=== PATIENT | female | born 1985 | race Caucasian/White ===

== ENCOUNTER 2017-02-14 10:42 | Emergency (ER) | payer OTHER ==
[~2017-02-14] VITALS: Ht 172.7 cm; Wt 59.0 kg
[2017-02-14 10:47] VITALS: TEMP 36.7; Ht 172.7 cm; Wt 59.0 kg
[2017-02-14] MEDS ORDERED: XYLOCAINE 1%/SOD BICARB 20 ML VIAL INFIL ONE (11:00)
--- NOTE | 2017-02-14 11:33 | DIAGNOSTIC IMAGING REPORT ---
RIGHT TIBIA AND FIBULA 2 VIEWS CLINICAL HISTORY: Foreign body. FINDINGS: AP and lateral views of the right tibia and fibula are obtained. No prior studies are available for comparison at the time of dictation. The skeletal structures are well mineralized. No tibial or fibular fracture is seen. The knee and ankle joints are maintained. A nail is present within the anterior soft tissues at the level of the proximal to mid tibial shaft. There is no bony involvement. No subcutaneous gas is identified. IMPRESSION: 1. No acute bony abnormality is seen in the right tibia or fibula. 2. A nail is present within the anterior soft tissues of the real at the level of the proximal to mid tibial shaft. No bony involvement is seen. Electronically signed by: Navdeep Cade M.D. 02/14/2017 11:32 AM Dictated Date/Time: 02/14/2017 11:30 AM
[2017-02-14] MEDS ORDERED: IBUP-1050 PO (12:04)
[2017-02-14] MEDS ORDERED: DIPHTHERIA/TETANUS/PERTUSSIS 0.5 ML SYR/VIAL IM. ONE (12:30)
[2017-02-14 12:48] VITALS: BP 119/76; PULSE 80; O2SAT 100
--- NOTE | 2017-02-14 19:44 | EMERGENCY ROOM VISIT NOTE ---
History Report prepared by Madi: Martín Apodaca Under the Supervision of: Dr. Evens Arellano M.D. First contact with patient: 10:52 Chief Complaint: FOREIGNBODY ANY BODY PART Stated Complaint: NAIL IN LEG History of Present Illness The patient is a 31 year old female who presents to the Emergency Room for evaluation of a constant foreign body of the right real beginning 40 minutes ago. She states that she was using a nail gun, when the nail ricocheted and pierced her right real. She denies any other injury. The patient has a history of Guillain [place] and was not that she should not have routine tetanus shots. Her tetanus shot is not up to date and her most recent shot was 22 years ago. She denies any numbness or tingling. Source of History: patient Onset: 40 minutes ago Position: leg (right real) Quality: other (foriegn body) Timing: constant Associated Symptoms: No numbness Review of Systems See HPI for pertinent positives and negatives. A total of six systems were reviewed and were otherwise negative. Past Medical & Surgical Medical Problems: (1) No Known Active Medical Problems Family History No pertinent family history stated. Social History Occupation Status: employed Current/Historical Medications Scheduled PRN Ibuprofen (Advil), 200-800 MG PO UD PRN for Pain Allergies Coded Allergies: Morphine (Unverified Adverse Reaction, Unknown, HIVES, 02/14/17) Physical Exam Vital Signs Date Time Temp Pulse Resp B/P (MAP) Pulse Ox O2 Delivery O2 Flow Rate FiO2 02/14/17 12:48 80 16 119/76 100 02/14/17 10:47 36.7 97 16 120/80 100 Physical Exam GENERAL: Awake, alert, mildly uncomfortable-appearing, in no distress HENT: Normocephalic, atraumatic. Oropharynx unremarkable. EYES: Normal conjunctiva. Sclera non-icteric. NECK: Supple. No nuchal rigidity. FROM. No JVD. RESPIRATORY: Clear to auscultation. CARDIAC: Regular rate, normal rhythm. Extremities warm and well perfused. Pulses equal. ABDOMEN: Soft, non-distended. No tenderness to palpation. No rebound or guarding. No masses. MUSCULOSKELETAL: Chest examination reveals no tenderness. The back is symmetrical on inspection without obvious abnormality. No joint edema. EXTREMITIES: Upper extremities are atraumatic. Left lower extremity is atraumatic. Nail protruding from the right anterior lateral real. NEURO: Normal sensorium. No sensory or motor deficits noted. SKIN: No rash or jaundice noted. Medical Decision & Procedures ER Provider Diagnostic Interpretation: X-ray: Per my interpretation, radiologist review. RIGHT TIBIA AND FIBULA 2 VIEWS FINDINGS: AP and lateral views of the right tibia and fibula are obtained. No prior studies are available for comparison at the time of dictation. The skeletal structures are well mineralized. No tibial or fibular fracture is seen. The knee and ankle joints are maintained. A nail is present within the anterior soft tissues at the level of the proximal to mid tibial shaft. There is no bony involvement. No subcutaneous gas is identified. IMPRESSION: 1. No acute bony abnormality is seen in the right tibia or fibula. 2. A nail is present within the anterior soft tissues of the real at the level of the proximal to mid tibial shaft. No bony involvement is seen. Electronically signed by: Navdeep Cade M.D. Medications Administered Medications (Trade) Dose Ordered Sig/Barry Route Start Time Stop Time Status Last Admin Dose Admin Lidocaine HCl (Buffered Lidocaine 1% Inj) 20 ml ONE ONCE INFIL 02/14/17 11:00 02/14/17 11:02 DC 02/14/17 11:11 20 ML Diphtheria/ Pertussis/Tetanus Vacc (Adacel Inj) 0.5 ml ONCE ONCE IM. 02/14/17 12:30 02/14/17 12:31 DC 02/14/17 12:36 0.5 ML Procedure Removal of Foreign Body Indication: Foreign body. Location: right anterior lateral real. Verbal consent was obtained after the risks and benefits were explained, including but not limited to bleeding, scarring, infection, pain, and bone/joint /nerve damage. At this time, the risks of the procedure are less than the risks of NOT performing the procedure. A time out was taken and the correct patient and site identified. The skin was prepped with betadine and a sterile field set. The wound was anesthetized with 4 ml of 1% lidocaine without epinephrine. The nail was removed easily. Copious irrigation was performed using normal saline using an 18-gauge Angiocath. The wound was explored for foreign bodies and no other ones are found. The foreign body was removed without complication. Bacitracin and bandage applied. Detailed wound care instructions and signs and symptoms of worsening infection reviewed with the patient. No complications and the patient tolerated the procedure well. ED Course 1053: The patient was evaluated in room D4B. A complete history and physical exam was performed. 1100: Ordered Buffered Lidocaine 1% Inj 20 mL INFIL. 1140: I reviewed the x-rays at bedside. There does not appear to be any bony involvement, so the nail will be removed. 1205: I removed the foreign body. See the procedure note for details. 1230: Ordered Adacel Inj 0.5 mL IM. 1220: I reevaluated the patient. Discussed results and discharge instructions: she verbalized understanding and agreement. The patient is ready for discharge. Medical Decision The patient presented to the emergency department with a nail in her leg from a nail gun. An x-ray was performed. There is no evidence of bony injury. This appeared to be in the soft tissue of her leg. The patient rates some concern about a tetanus immunization as she was told to not have this in the past. She had G [place] when she was 19 years old. This was after viral infections by her history. The patient stated she did not have any vaccines around that time. Given the current recommendations and after discussion with neurology it was felt that it would be reasonable to treat the patient with a tetanus booster. I did discuss this with the patient. This was done. Foreign body was removed as above. No other injuries were sustained. The patient was neurologically intact.I gave my usual and customary discussion regarding this issue. Return instructions were outlined and the patient was discharged in stable condition. Medication Reconcilliation Current Medication List: was personally reviewed by me Blood Pressure Screening Patient's blood pressure: Normal blood pressure Blood pressure disposition: Did not require urgent referral Consults Time Called: 1155 Consulting Physician: Dr. Nair -Neurology Returned Call: 1202 Discussed the patient's case. Dr. Nair feels that the patient would be safe to receive a tetanus booster. He is not aware of any association between vaccines and recurrent [place]illain[place]. Impression Primary Impression: Foreign body of right lower leg Additional Impression: Injury by nail gun Scribe Attestation The scribe's documentation has been prepared under my direction and personally reviewed by me in its entirety. I confirm that the note above accurately reflects all work, treatment, procedures, and medical decision making performed by me. Departure Information Dispostion Home / Self-Care Referrals No Doctor, Assigned (PCP) Forms HOME CARE DOCUMENTATION FORM, IMPORTANT VISIT INFORMATION, WORK / SCHOOL INSTRUCTIONS Patient Instructions [facility] [place] [employer] Additional Instructions Bacitracin and Band-Aid to the area once daily until healed. Ibuprofen(Motrin, Advil) may be used for fever or pain. Use 600mg every six hours as needed. Take with food. Avoid using more than 2400mg in a 24 hour period. Do not use 2400mg per day for more than three consecutive days without physician direction. Prolonged inappropriate use can lead to stomach upset or ulcers. (AND/OR) Acetaminophen(Tylenol) may be used for fever or pain. Use 1000mg every six hours as needed. Avoid using more than 4000mg in a 24 hour period. Ice compresses for 20 minutes at a time four times daily for 2-3 days as needed for swelling. Rest and elevate your injury. Return to the ER immediately for spreading redness, fevers, pus-like drainage, severe pain, or as needed. Follow-up with your primary care physician in 2 to 3 days for a recheck of your current condition. Problem Qualifiers
== END 2017-02-14 12:49 | disposition home or self-care (01) ==
LOC: C.EDB 10:44 → EDBD 10:44 → C.EDD 12:49
DX: S80.851A Superficial foreign body, right lower leg, initial encounter (principal); Z23 Encounter for immunization; W29.4XXA Contact with nail gun, initial encounter; Z87.898 Personal history of other specified conditions

== ENCOUNTER 2018-02-22 16:33 | Emergency (ER) | payer OTHER ==
[~2018-02-22] VITALS: Ht 172.7 cm; Wt 55.7 kg
[~2018-02-22 16:33] MED LIST: IBUP-1050 PO
[2018-02-22 16:36] VITALS: TEMP 36.8; Ht 172.7 cm; Wt 55.7 kg
[2018-02-22 17:07] LABS: BASO % 0.4 %; BASO ABS # 0.04 K/uL (0-0.2); EOS % 0.7 %; EOS ABS # 0.07 K/uL (0-0.5); HEMATOCRIT 40.1 % (37-47); HEMOGLOBIN 13.6 g/dL (12.0-16.0); IG# 0.04 K/uL (0.00-0.02); LYMPH % 26.8 %; LYMPH ABS # 2.64 K/uL (1.2-3.4); MEAN CELL VOLUME 89.7 fL (80-100); MEAN CORPUSCULAR HEMOGLOBIN 30.4 pg (25-34); MEAN CORPUSCULAR HGB CONC 33.9 g/dl (32-36); MONO % 6.2 %; MONO ABS # 0.61 K/uL (0.11-0.59); NEUT % 65.5 %; NEUT ABS # 6.46 K/uL (1.4-6.5); PLATELET COUNT 310 K/uL (130-400); RED CELL DISTRIBUTION WIDTH CV 13.1 % (11.5-14.5); RED CELL DISTRIBUTION WIDTH SD 43.2 fL (36.4-46.3); WHITE BLOOD COUNT 9.86 K/uL (4.8-10.8)
[2018-02-22] MEDS ORDERED: BUPRTAB51 PO (17:15)
[2018-02-22] MEDS ORDERED: OPTIRAY 320 IV PRN (17:15)
--- NOTE | 2018-02-22 17:30 | DIAGNOSTIC IMAGING REPORT ---
CHEST ONE VIEW PORTABLE CLINICAL HISTORY: Chest pain. COMPARISON STUDY: No previous studies for comparison. FINDINGS: No pneumothorax or pleural effusion is noted. Lungs are clear. Cardiac size is normal. Mediastinal contours are normal. There is no pneumothorax or pleural effusion. There is no evidence for pulmonary edema. IMPRESSION: No acute cardiopulmonary findings. Electronically signed by: Gonsalo Huddleston M.D. 02/22/2018 5:29 PM Dictated Date/Time: 02/22/2018 5:28 PM
[2018-02-22 17:31] LABS: ALBUMIN 4.5 gm/dl (3.4-5.0); ALKALINE PHOSPHATASE 52 U/L (45-117); ALT/SGPT 15 U/L (12-78); AST/SGOT 11 U/L (15-37); BLOOD UREA NITROGEN 15 mg/dl (7-18); CALCIUM 9.2 mg/dl (8.5-10.1); CARBON DIOXIDE 23 mmol/L (21-32); CREATININE 0.81 mg/dl (0.60-1.20); GLUCOSE 77 mg/dl (70-99); LIPASE 74 U/L (73-393); POTASSIUM 3.7 mmol/L (3.5-5.1); SODIUM 140 mmol/L (136-145); TOTAL PROTEIN 8.1 gm/dl (6.4-8.2)
[2018-02-22] MEDS ORDERED: ONDANSETRON INJ 2 MG/ML 2 ML VIAL ONE (18:18)
--- NOTE | 2018-02-22 18:21 | DIAGNOSTIC IMAGING REPORT ---
CT ABD/PELVIS IV CONTRAST ONLY CLINICAL HISTORY: diffuse abd pain COMPARISON STUDY: None. TECHNIQUE: Following the IV administration of 119 mL of Optiray-320, CT scan of the abdomen and pelvis was performed from the lung bases to the proximal femurs. Images are reviewed in the axial, sagittal, and coronal planes. IV contrast was administered without complication. A dose lowering technique was utilized adhering to the principles of ALARA. CT DOSE: 255.20 mGy.cm FINDINGS: Lower chest: There are minor dependent atelectatic changes present. Liver: There is a to small to characterize 4 mm hypodensity within the right lobe of the liver anteriorly. Gallbladder: Unremarkable. Spleen: Normal in size and attenuation. Pancreas: Unremarkable. Adrenal glands: Unremarkable. Kidneys: There is symmetric renal cortical enhancement. The kidneys are normal in size without hydronephrosis. Bowel: There are no transition zones to indicate bowel obstruction. There is mild fecal retention. There is no acute diverticulitis. The appendix is difficult to visualize. There are no pericecal inflammatory changes. Peritoneum: There is trace free pelvic fluid. No free intraperitoneal air is visualized. Vasculature: The abdominal aorta is normal in course and caliber. Adenopathy: None. Pelvic viscera: There are bilateral ovarian follicles. There is an indwelling IUD. Skeletal structures: No destructive osseous lesions are seen. IMPRESSION: 1. No evidence of bowel obstruction. No evidence of free air 2. The appendix is difficult to visualize on this study performed without oral contrast. There are no pericecal inflammatory changes. 3. Mild fecal retention 4. IUD within the uterus 5. Bilateral ovarian follicles and minimal free pelvic fluid. Electronically signed by: Rodney Browning M.D. 02/22/2018 6:19 PM Dictated Date/Time: 02/22/2018 6:12 PM
[2018-02-22] MEDS ORDERED: ONDA4TAB65 PO (18:53)
[2018-02-22 19:00] VITALS: BP 112/72; PULSE 71; O2SAT 99
--- NOTE | 2018-02-22 22:19 | EMERGENCY ROOM VISIT NOTE ---
History Report prepared by Madi: Luly Slater Under the Supervision of: Dr. Anjum Zepeda D.O. First contact with patient: 16:38 Chief Complaint: ABDOMINAL PAIN Stated Complaint: ABD PAIN History of Present Illness The patient is a 32 year old female who presents to the Emergency Room with complaints of worsening left sided abdominal pain beginning 1 week officer captain. She states when her pain began, it was tolerable and only on her left side however over the past 2 days, it has worsened. She describes her pain as cramping and sharp. She reports she vomited once today and decided to come to the ED. Pt also states she has been getting sharp episodes chest pains but nothing makes her pain better or worse. Chest pain has been there since this morning. No other exacerbating or remitting factors. He took 1 oxycodone which slightly alleviated her pain. She reports she is having difficulty urinating and has some nausea but denies headache, change in vision, fevers, shortness of breath, diarrhea, and melena. She has not had a BM for the past 3 days but this is not abnormal for her. Her LNMP 3 weeks officer captain and she has Mirena. Source of History: patient Onset: 1 week officer captain Position: abdomen (left sided) Quality: sharp, cramping Modifying Factors (Relieving): other (1 oxycodone) Associated Symptoms: + chest pain (sharp episodes), + nausea, + vomiting ( once), + urinary symptoms (pain with urination), No fevers, No headache, No SOB , No melena, No diarrhea Review of Systems See HPI for pertinent positives & negatives. A total of 10 systems reviewed and were otherwise negative. Past Medical & Surgical Medical Problems: (1) No Known Active Medical Problems Family History No pertinent family history Social History Smoking Status: Current Every Day Smoker Marital Status: in relationship Occupation Status: employed Current/Historical Medications Scheduled Bupropion (Wellbutrin-Xl), 300 MG PO DAILY Ondansetron Hcl (Zofran), 4 MG PO TID Allergies Coded Allergies: Morphine (Unverified Adverse Reaction, Unknown, HIVES, 02/22/18) Physical Exam Vital Signs Date Time Temp Pulse Resp B/P (MAP) Pulse Ox O2 Delivery O2 Flow Rate FiO2 02/22/18 19:00 71 20 112/72 99 02/22/18 18:23 68 16 114/74 98 Room Air 02/22/18 16:36 36.8 97 17 129/90 98 Room Air Physical Exam GENERAL: Sitting up in bed, alert, well appearing, well nourished, no distress, non-toxic EYE EXAM: normal conjunctiva. OROPHARYNX: no exudate, no erythema, lips, buccal mucosa, and tongue normal and mucous membranes are moist NECK: supple, no nuchal rigidity, no adenopathy, non-tender LUNGS: Clear to auscultation. Normal chest wall mechanics HEART: no murmurs, S1 normal and S2 normal ABDOMEN: abdomen soft, mild diffuse tenderness , normo-active bowel sounds, no masses, no rebound or guarding. BACK: Back is symmetrical on inspection and there is no deformity, no midline tenderness, no CVA tenderness. SKIN: no rashes and no bruising UPPER EXTREMITIES: upper extremities are grossly normal. LOWER EXTREMITIES: No pitting edema. Calves equal bilaterally NEURO EXAM: Normal sensorium, cranial nerves II-XII grossly intact, normal speech, no gross weakness of arms, no gross weakness of legs. Medical Decision & Procedures ER Provider Diagnostic Interpretation: Radiology results as stated below per my review and the radiologist's interpretation: CHEST ONE VIEW PORTABLE CLINICAL HISTORY: Chest pain. COMPARISON STUDY: No previous studies for comparison. FINDINGS: No pneumothorax or pleural effusion is noted. Lungs are clear. Cardiac size is normal. Mediastinal contours are normal. There is no pneumothorax or pleural effusion. There is no evidence for pulmonary edema. IMPRESSION: No acute cardiopulmonary findings. Electronically signed by: Gonsalo Huddleston M.D. 02/22/2018 5:[address] ABD/PELVIS IV CONTRAST ONLY CLINICAL HISTORY: diffuse abd pain COMPARISON STUDY: None. TECHNIQUE: Following the IV administration of 119 mL of Optiray-320, CT scan of the abdomen and pelvis was performed from the lung bases to the proximal femurs. Images are reviewed in the axial, sagittal, and coronal planes. IV contrast was administered without complication. A dose lowering technique was utilized adhering to the principles of ALARA. CT DOSE: 255.20 mGy.cm FINDINGS: Lower chest: There are minor dependent atelectatic changes present. Liver: There is a to small to characterize 4 mm hypodensity within the right lobe of the liver anteriorly. Gallbladder: Unremarkable. Spleen: Normal in size and attenuation. Pancreas: Unremarkable. Adrenal glands: Unremarkable. Kidneys: There is symmetric renal cortical enhancement. The kidneys are normal in size without hydronephrosis. Bowel: There are no transition zones to indicate bowel obstruction. There is mild fecal retention. There is no acute diverticulitis. The appendix is difficult to visualize. There are no pericecal inflammatory changes. Peritoneum: There is trace free pelvic fluid. No free intraperitoneal air is visualized. Vasculature: The abdominal aorta is normal in course and caliber. Adenopathy: None. Pelvic viscera: There are bilateral ovarian follicles. There is an indwelling IUD. Skeletal structures: No destructive osseous lesions are seen. IMPRESSION: 1. No evidence of bowel obstruction. No evidence of free air 2. The appendix is difficult to visualize on this study performed without oral contrast. There are no pericecal inflammatory changes. 3. Mild fecal retention 4. IUD within the uterus 5. Bilateral ovarian follicles and minimal free pelvic fluid. Electronically signed by: Rodney Browning M.D. 02/22/2018 6:19 PM Laboratory Results 02/22/18 16:55 Red Blood Count 4.47, Mean Corpuscular Volume 89.7, Mean Corpuscular Hemoglobin 30.4, Mean Corpuscular Hemoglobin Concent 33.9, Mean Platelet Volume 11.0, Neutrophils (%) (Auto) 65.5, Lymphocytes (%) (Auto) 26.8, Monocytes (%) (Auto) 6.2, Eosinophils (%) (Auto) 0.7, Basophils (%) (Auto) 0.4, Neutrophils # (Auto) 6.46, Lymphocytes # (Auto) 2.64, Monocytes # (Auto) 0.61, Eosinophils # (Auto) 0.07, Basophils # (Auto) 0.04 02/22/18 16:55 Test 02/22/18 16:55 02/22/18 16:57 White Blood Count 9.86 K/uL (4.8-10.8) Red Blood Count 4.47 M/uL (4.2-5.4) Hemoglobin 13.6 g/dL (12.0-16.0) Hematocrit 40.1 % (37-47) Mean Corpuscular Volume 89.7 fL (80-100) Mean Corpuscular Hemoglobin 30.4 pg (25-34) Mean Corpuscular Hemoglobin Concent 33.9 g/dl (32-36) Platelet Count 310 K/uL (130-400) Mean Platelet Volume 11.0 fL (7.4-10.4) Neutrophils (%) (Auto) 65.5 % Lymphocytes (%) (Auto) 26.8 % Monocytes (%) (Auto) 6.2 % Eosinophils (%) (Auto) 0.7 % Basophils (%) (Auto) 0.4 % Neutrophils # (Auto) 6.46 K/uL (1.4-6.5) Lymphocytes # (Auto) 2.64 K/uL (1.2-3.4) Monocytes # (Auto) 0.61 K/uL (0.11-0.59) Eosinophils # (Auto) 0.07 K/uL (0-0.5) Basophils # (Auto) 0.04 K/uL (0-0.2) RDW Standard Deviation 43.2 fL (36.4-46.3) RDW Coefficient of Variation 13.1 % (11.5-14.5) Immature Granulocyte % (Auto) 0.4 % Immature Granulocyte # (Auto) 0.04 K/uL (0.00-0.02) D-Dimer 190 ug/L FEU (0-500) Anion Gap 9.0 mmol/L (3-11) Est Creatinine Clear Calc Drug Dose 89.3 ml/min Estimated GFR () 113.0 Estimated GFR (Non- 97.5 BUN/Creatinine Ratio 18.2 (10-20) Calcium Level 9.2 mg/dl (8.5-10.1) Total Bilirubin 0.4 mg/dl (0.2-1) Direct Bilirubin 0.2 mg/dl (0-0.2) Aspartate Amino Transf (AST/SGOT) 11 U/L (15-37) Alanine Aminotransferase (ALT/SGPT) 15 U/L (12-78) Alkaline Phosphatase 52 U/L (45-117) Troponin I < 0.015 ng/ml (0-0.045) Total Protein 8.1 gm/dl (6.4-8.2) Albumin 4.5 gm/dl (3.4-5.0) Lipase 74 U/L (73-393) Urine Color DK YELLOW Urine Appearance CLEAR (CLEAR) Urine pH 8.0 (4.5-7.5) Urine Specific [place] 1.033 (1.000-1.030) Urine Protein NEG (NEG) Urine Glucose (UA) NEG (NEG) Urine Ketones TRACE (NEG) Urine Occult Blood NEG (NEG) Urine Nitrite NEG (NEG) Urine Bilirubin NEG (NEG) Urine Urobilinogen NEG (NEG) Urine Leukocyte Esterase NEG (NEG) Urine WBC (Auto) 1-5 /hpf (0-5) Urine RBC (Auto) 0-4 /hpf (0-4) Urine Hyaline Casts (Auto) 1-5 /lpf (0-5) Urine Epithelial Cells (Auto) >30 /lpf (0-5) Urine Bacteria (Auto) NEG (NEG) Urine Test NEG (NEG) Laboratory results per my review. Medications Administered Medications (Trade) Dose Ordered Sig/Barry Route Start Time Stop Time Status Last Admin Dose Admin Ondansetron HCl (Zofran Inj) 4 mg STK-MED ONCE .ROUTE 02/22/18 18:18 02/22/18 18:19 DC 02/22/18 18:22 4 MG ECG Per My Interpretation Indication: abdominal pain Rate (beats per minute): 89 Rhythm: sinus rhythm Findings: other (normal axis, no PVCs) ED Course ED COURSE: Vital signs were reviewed and showed normotensive The patients medical record was reviewed The above diagnostic studies were performed and reviewed. ED treatments and interventions as stated above. 1639: The patient was evaluated in room C9. A complete history and physical examination was performed. 1817: Ordered Zofran Inj 4 mg .route 1847: Upon reevaluation, the patient is feeling improved. I discussed my findings with the patient and she understands and agrees with the treatment plan. Based on the patients age, coexisting illnesses, exam and lab findings the decision to treat as an outpatient was made. The patient remained stable while under my care. The patient appeared well at the time of discharge. Medical Decision Differential diagnoses includes but is not limited to gastritis, peptic ulcer disease, GERD, gallbladder disease, pancreatitis, small bowel obstruction, acute coronary syndrome, pericarditis, ischemic bowel, irritable bowel disease, irritable bowel syndrome, appendicitis, diverticulitis, malignancy, hernia, urinary tract infection, torsion, [/ectopic (if female)], perforation, trauma, infectious. Patient is a 32-year-old female who presents the ER for diffuse abdominal cramping. She describes it as sharp and cramping at the same time. She did have one episode of vomiting. Last bowel movement was 3-4 days ago. She does admit to some mild dysuria. No vaginal bleeding or vaginal discharge. CBC along with BMP, LFTs, bilirubin and lipase is unremarkable. Troponin was obtained as she did have some mild chest discomfort earlier this morning. UA was negative. was negative. D-dimer was negative. EKG was unremarkable. Do not believe this is cardiac. CT of abdomen pelvis was unremarkable along with the chest x-ray. Patient was updated bedside and discharged follow-up PCP as an outpatient. She was given fluids and Zofran did feel slightly better. Discussed with Pt concerning signs and symptoms to watch out for. Pt was instructed to follow up with their PCP and discussed with the patient their option to return to the ED at anytime for persistent or worsening symptoms. The appropriate anticipatory guidance and out-patient management, including indications for return to the emergency department, were explained at length to the patient and understood. Medication Reconcilliation Current Medication List: was personally reviewed by me Blood Pressure Screening Patient's blood pressure: Normal blood pressure Blood pressure disposition: Did not require urgent referral Impression Primary Impression: Abdominal pain Additional Impression: Chest pain Scribe Attestation The scribe's documentation has been prepared under my direction and personally reviewed by me in its entirety. I confirm that the note above accurately reflects all work, treatment, procedures, and medical decision making performed by me. Departure Information Dispostion Home / Self-Care Prescriptions Ondansetron Hcl (ZOFRAN) 4 Mg Tab 4 MG PO TID for NAUSEA, #20 TAB Prov: Anujm Zepeda, DO 02/22/18 Referrals No Doctor, Assigned (PCP) Forms HOME CARE DOCUMENTATION FORM, IMPORTANT VISIT INFORMATION Patient Instructions My [facility] Additional Instructions Please follow up with your primary care doctor with in the next 24 hours. Any worsening of your symptoms, please return to the ED immediately. This includes any fevers greater than 100.4, worsening pain, chest pain, shortness breath, persistent nausea, vomiting, unable to eat or drink, or any other concerning signs or symptoms from your standpoint. Please take Tylenol or Motrin as needed for pain. Please take Zofran as needed for nausea and vomiting. Problem Qualifiers Primary Impression: Abdominal pain Abdominal location: unspecified location Qualified Codes: R10.9 - Unspecified abdominal pain Additional Impression: Chest pain Chest pain type: unspecified Qualified Codes: R07.9 - Chest pain, unspecified
== END 2018-02-22 19:00 | disposition home or self-care (01) ==
LOC: C.EDB 16:35 → C.EDC 19:00
DX: R10.9 Unspecified abdominal pain (principal); R07.9 Chest pain, unspecified; R30.0 Dysuria; F17.200 Nicotine dependence, unspecified, uncomplicated; Z88.6 Allergy status to analgesic agent